=== PATIENT | male | born 1985 | race Caucasian/White ===

== ENCOUNTER 2020-10-14 04:38 | Emergency (ER) | payer OTHER ==
[~2020-10-14 04:38] MED LIST: AMOXICILLIN500 MG PO; AUGMENTIN 500-500 MG PO; IBUPROFEN600 MG PO; NAPROSYN500 MG PO
[2020-10-14 05:41] LABS: HEMOGLOBIN 14.7 gm/dl (14.0-17.5); RED BLOOD COUNT 4.55 M/UL (4.20-5.50); WHITE BLOOD COUNT 10.3 K/UL (4.5-11.0)
[2020-10-14 06:07] LABS: BUN/CREATININE RATIO 21 (0-10)
== END 2020-10-14 08:48 | disposition home or self-care (01) ==
LOC: ER1 04:38
PROVIDERS: Emergency Medicine
DX: R10.31 Right lower quadrant pain (principal); R16.0 Hepatomegaly, not elsewhere classified; F17.200 Nicotine dependence, unspecified, uncomplicated
CPT/HCPCS: 80053; 81001; 83690; 85025; 96374; 96375; 99284; J1885; J2270; J2405; Q9967

== ENCOUNTER 2021-09-20 16:20 | Inpatient (IN) | payer MEDICARE, OTHER ==
[~2021-09-20] VITALS: Ht 185.4 cm; Wt 108.4 kg
[2021-09-20 16:38] LABS: HEMOGLOBIN 15.7 gm/dl (14.0-17.5); RED BLOOD COUNT 4.86 M/UL (4.20-5.50); WHITE BLOOD COUNT 11.7 K/UL (4.5-11.0)
[2021-09-20 17:04] LABS: BUN/CREATININE RATIO 23 (0-10)
[2021-09-21 07:19] LABS: RED BLOOD COUNT 4.52 M/UL (4.20-5.50); WHITE BLOOD COUNT 10.7 K/UL (4.5-11.0)
[2021-09-21 07:38] LABS: BUN/CREATININE RATIO 17 (0-10)
[2021-09-22 04:05] LABS: CANDIDA ALBICANS Not Detected (Negative); CANDIDA KRUSEI Not Detected (Negative); CANDIDA TROPICALIS Not Detected (Negative); ESCHERICHIA COLI Not Detected (Negative); HAEMOPHILUS INFLUENZAE Not Detected (Negative); KLEBSIELLA OXYTOCA Not Detected (Negative); KLEBSIELLA PNEUMONIAE Not Detected (Negative); KPC-CARBAPENEM-RESISTANCE GENE Not Detected (Negative); PROTEUS Not Detected (Negative); PSEUDOMONAS AERUGINOSA Not Detected (Negative); SERRATIA MARCESANS Not Detected (Negative); STAPHYLOCOCCUS Not Detected (Negative); STAPHYLOCOCCUS AUREUS Not Detected (Negative); STREP AGALACTIAE (GROUP B) Not Detected (Negative); STREP PYOGENES (GROUP A) Not Detected (Negative); STREPTOCOCCUS Not Detected (Negative); vanA/B (VANCOMYCIN RESIST GENE Not Detected (Negative)
[2021-09-22 05:06] LABS: HEMOGLOBIN 13.8 gm/dl (14.0-17.5); RED BLOOD COUNT 4.37 M/UL (4.20-5.50); WHITE BLOOD COUNT 10.8 K/UL (4.5-11.0)
[2021-09-22 05:45] LABS: BUN/CREATININE RATIO 16 (0-10)
[2021-09-23] MEDS ORDERED: LISINOPRIL5 MG PO (08:37)
[2021-09-23] MEDS ORDERED: LEVOFLOXACIN500 MG PO (08:37)
== END 2021-09-23 09:54 | disposition home or self-care (01) | DRG 917 ==
LOC: ER1 16:20 → CDU 18:36 → PROG CARE 18:36 → CCU 18:36 → CDU 18:36 → CCU 21:15 → PROG CARE 09-23 00:33
PROVIDERS: Emergency Medicine; ADMIT Internal Medicine
DX: T40.5X1A Poisoning by cocaine, accidental (unintentional), initial encounter (principal); J69.0 Pneumonitis due to inhalation of food and vomit; G92.9 Unspecified toxic encephalopathy; Z20.822 Contact with and (suspected) exposure to COVID-19; I10 Essential (primary) hypertension; R45.1 Restlessness and agitation; G47.00 Insomnia, unspecified; F17.210 Nicotine dependence, cigarettes, uncomplicated; R00.0 Tachycardia, unspecified; E87.6 Hypokalemia; Z80.1 Family history of malignant neoplasm of trachea, bronchus and lung; Z83.3 Family history of diabetes mellitus; Z82.49 Family history of ischemic heart disease and other diseases of the circulatory system
CPT/HCPCS: 36415; 80048; 80053; 80307; 81001; 82550; 82553; 82803; 83605; 83735; 84484; 85025; 87040; 87077; 87150; 93005; 96374; 96376; 99285; G0480; J0360; J0696; J1650; J2060; J2250; J3370; J3480; J3486; J7030; J7070